=== PATIENT | female | born 1985 | race American Indian/Alaskan Native ===

== ENCOUNTER 2017-04-08 04:15 | Emergency (ER) | payer MEDICAID ==
[2017-04-08] MEDS ORDERED: NACL 0.9% 250ML 250 ML IV ONE (05:12)
[2017-04-08] MEDS ORDERED: NACL 0.9% 250ML 250 ML ONE (05:16)
[2017-04-08 05:23] LABS: Basophils % (Auto) 1.5 % (0.0-1.8); Eosinophils % (Auto) 0.6 % (0.0-4.3); Hematocrit 32.8 % (30.3-42.9); Hemoglobin 10.7 gm/dl (10.1-14.3); Mean Corpuscular HGB Conc 33 % (30-34); Mean Corpuscular Hemoglobin 28 pg (28-32); Mean Corpuscular Volume 84 fl (79-97); Platelet Count 438 K/mm3 (140-440); Red Blood Count 3.89 M/mm3 (3.65-5.03); White Blood Count 5.6 K/mm3 (4.5-11.0)
[2017-04-08 06:04] LABS: Anion Gap 32 mmol/L; BUN/Creatinine Ratio 23; Blood Urea Nitrogen 25 mg/dL (7-17); Calcium 9.5 mg/dL (8.4-10.2); Carbon Dioxide 21 mmol/L (22-30); Chloride 81.8 mmol/L (98-107); Glucose 97 mg/dL (65-100); Sodium 132 mmol/L (137-145)
[2017-04-08] MEDS ORDERED: MORPHINE IV ONE (06:12)
--- NOTE | 2017-04-08 06:16 | Emergency Department Report ---
ED Chest Pain HPI - General Chief Complaint: Chest Pain Stated Complaint: CHEST PAIN Time Seen by Provider: 04/08/17 05:58 Source: patient, EMS Mode of arrival: Stretcher Limitations: No Limitations - History of Present Illness Initial Comments: 31-year-old female who presents emergency Department with complaint of chest pain and a defib firing twice. Patient recently diagnosed with cardiomyopathy and was started on a minute milrinone drip. Her senior stack engineer is at [place]. She denies any other symptoms including chest pain nausea vomiting shortness of breath. She appears anxious but is otherwise well. MD Complaint: chest pain -: Sudden Pain Location: left chest Quality: tightness Consistency: constant Improves With: nothing Worsens With: nothing re: denies: nausea, vomting Treatments Prior to Arrival: none - Related Data Home Medications Medication Instructions Recorded Confirmed Last Taken Aspirin [Aspirin BABY CHEW TAB] 81 mg PO DAILY 04/08/17 04/08/17 1 Day Ago 81 Digoxin [Lanoxin] DAILY 04/08/17 Unknown Enoxaparin [Lovenox] 90 mg SUB-Q DAILY 04/08/17 04/08/17 1 Day Ago 90 ISOSORBIDE MONOnitrate [Monoket] 25 mg PO DAILY 04/08/17 04/08/17 1 Day Ago 25 Spironolactone [Aldactone] DAILY 04/08/17 Unknown Torsemide [Demadex] BID 04/08/17 Unknown Warfarin [Coumadin] 5 mg PO DAILY 04/08/17 04/08/17 1 Day Ago 5mg hydrALAZINE [Apresoline TAB] 100 mg PO TID 04/08/17 04/08/17 Unknown Allergies Allergy/AdvReac Type Severity Reaction Status Date / Time hydrochlorothiazide Allergy Intermediate Unknown Verified 04/08/17 04:33 nifedipine Allergy Mild Headache Verified 04/08/17 04:33 methyldopa AdvReac Mild Unknown Verified 04/08/17 04:33 Heart Score - HEART Score History: Moderately suspicious EKG: Non-specific Age: < 45 Risk factors: No known risk factors Troponin: < normal limit HEART Score: 2 ED Review of Systems ROS: Stated complaint: CHEST PAIN Other details as noted in HPI Comment: All other systems reviewed and negative Constitutional: denies: chills, fever Eyes: denies: eye pain, eye discharge, vision change ENT: denies: ear pain, throat pain Respiratory: denies: cough, shortness of breath, wheezing Cardiovascular: denies: chest pain, palpitations Endocrine: no symptoms reported Gastrointestinal: denies: abdominal pain, nausea, diarrhea Genitourinary: denies: urgency, dysuria, discharge Musculoskeletal: denies: back pain, joint swelling, arthralgia Skin: denies: rash, lesions Neurological: denies: headache, weakness, paresthesias Psychiatric: denies: anxiety, depression Hematological/Lymphatic: denies: easy bleeding, easy bruising ED Past Medical Hx - Past Medical History Previous Medical History?: Yes Hx Hypertension: Yes (PIH) Hx Congestive Heart Failure: Yes Hx Diabetes: No Hx Asthma: No Hx COPD: No Hx HIV: No - Surgical History Past Surgical History?: Yes Hx Internal Defibrillator: Yes (January 2017) - Family History Family history: no significant - Social History Smoking Status: Former Smoker Substance Use Type: None - Medications Home Medications: Home Medications Medication Instructions Recorded Confirmed Last Taken Type Aspirin [Aspirin BABY CHEW TAB] 81 mg PO DAILY 04/08/17 04/08/17 1 Day Ago History 81 Digoxin [Lanoxin] DAILY 04/08/17 Unknown History Enoxaparin [Lovenox] 90 mg SUB-Q DAILY 04/08/17 04/08/17 1 Day Ago History 90 ISOSORBIDE MONOnitrate [Monoket] 25 mg PO DAILY 04/08/17 04/08/17 1 Day Ago History 25 Spironolactone [Aldactone] DAILY 04/08/17 Unknown History Torsemide [Demadex] BID 04/08/17 Unknown History Warfarin [Coumadin] 5 mg PO DAILY 04/08/17 04/08/17 1 Day Ago History 5mg hydrALAZINE [Apresoline TAB] 100 mg PO TID 04/08/17 04/08/17 Unknown History ED Physical Exam - General Limitations: No Limitations General appearance: alert, in no apparent distress - Head Head exam: Present: atraumatic, normocephalic - Eye Eye exam: Present: normal appearance. Absent: scleral icterus, conjunctival injection - ENT ENT exam: Present: mucous membranes moist - Neck Neck exam: Present: normal inspection - Respiratory Respiratory exam: Present: normal lung sounds bilaterally. Absent: respiratory distress, wheezes, rales - Cardiovascular Cardiovascular Exam: Present: normal rhythm, tachycardia, normal heart sounds. Absent: systolic murmur, diastolic murmur, rubs, gallop - GI/Abdominal GI/Abdominal exam: Present: soft, normal bowel sounds. Absent: distended, tenderness, guarding - Extremities Exam Extremities exam: Present: normal inspection - Back Exam Back exam: Present: normal inspection - Neurological Exam Neurological exam: Present: alert, oriented X3 - Psychiatric Psychiatric exam: Present: normal affect, normal mood - Skin Skin exam: Present: warm, dry, intact, normal color. Absent: rash ED Course Vital Signs 04/08/17 04/08/17 04/08/17 04:20 04:30 04:45 Temperature 97.8 F Pulse Rate 110 H 109 H 107 H Respiratory 18 24 16 Rate Blood Pressure 102/64 92/62 Blood Pressure 91/61 [Left] O2 Sat by Pulse 100 100 99 Oximetry 04/08/17 04/08/17 04/08/17 04:55 05:00 05:05 Temperature Pulse Rate 54 L 109 H 130 H Respiratory 20 Rate Blood Pressure 91/61 Blood Pressure 92/62 [Left] O2 Sat by Pulse 99 Oximetry 04/08/17 04/08/17 04/08/17 05:15 05:30 06:00 Temperature Pulse Rate 54 L 129 H 123 H Respiratory 18 20 13 Rate Blood Pressure 106/64 123/82 Blood Pressure 106/64 [Left] O2 Sat by Pulse 100 100 100 Oximetry 04/08/17 04/08/17 04/08/17 06:30 09:25 13:18 Temperature 98.8 F 98.7 F Pulse Rate 121 H 104 H 107 H Respiratory 17 18 16 Rate Blood Pressure 123/82 Blood Pressure 94/54 101/65 [Left] O2 Sat by Pulse 99 100 99 Oximetry 04/08/17 14:30 Temperature Pulse Rate 112 H Respiratory 18 Rate Blood Pressure Blood Pressure 100/65 [Left] O2 Sat by Pulse 99 Oximetry ED Medical Decision Making - Lab Data Result diagrams: 04/08/17 04:54 04/08/17 11:09 Laboratory Results - last 24 hr 04/08/17 04/08/17 04/08/17 04:54 04:54 04:54 WBC 5.6 RBC 3.89 Hgb 10.7 Hct 32.8 MCV 84 MCH 28 MCHC 33 RDW 20.0 H Plt Count 438 Lymph % (Auto) 26.3 [place] % (Auto) 7.4 H Eos % (Auto) 0.6 Baso % (Auto) 1.5 Lymph # 1.5 [place] # 0.4 Eos # 0.0 Baso # 0.1 Seg Neutrophils % 64.2 Seg Neutrophils # 3.6 Sodium 132 L Chloride 81.8 L Carbon Dioxide 21 L Anion Gap 32 BUN 25 H Creatinine 1.1 Estimated GFR > 60 BUN/Creatinine Ratio 23 Glucose 97 Calcium 9.5 Troponin T 0.039 H HCG, Qual Negative - EKG Data -: EKG Interpreted by Me - EKG Data 04/08/17 06:18 Sinus rate of 117 left axis deviation biatrial enlargement appears to be in bigeminy no obvious ST or T-wave changes. Poor R-wave progression. - Medical Decision Making 31-year-old female with a history of cardiomyopathy here with complaint of August 11 twice. She complains of her heart rate going up today. She is on amiodarone drip. She is followed by senior stack engineer at [facility]. She currently appears well. She is tachycardic in the room. Plan to check labs, chest x-ray, and anticipate transfer to [facility]. I contacted [employer] to interrogate the pacemaker. They were able to remotely interrogate the pacer and sent a report. It appears the patient had 2 episodes of ventricular tachycardia and was defibrillated. Patient's potassium was 2.7. Plan to replace in the emergency department. Patient given 40 meq orally and 20 mEq IV. I discussed the case with the transfer center at [facility] and they have accepted the patient in transfer. The patient will be transferred to Dr. Cueva. Critical Care Time: Yes (90) Critical care attestation.: If time is entered above; I have spent that time in minutes in the direct care of this critically ill patient, excluding procedure time. Critical Care Time: 90 ED Disposition Clinical Impression: Ventricular tachycardia, Defibrillator discharge, Hypokalemia Disposition: [id number] ANOTHER TYPE HLTHCARE Is pt being admited?: No Condition: Stable Referrals: PRIMARY CARE, [Primary Care Provider] - 3-5 Days
[2017-04-08 06:24] LABS: Potassium 2.7 mmol/L (3.6-5.0)
[2017-04-08] MEDS ORDERED: DILAUDID ONE (06:24)
[2017-04-08] MEDS ORDERED: DILAUDID IV ONE ×2 (06:25→11:01)
[2017-04-08] MEDS ORDERED: K-DUR PO ONE ×2 (06:26→06:29)
[2017-04-08 07:00] LABS: Cholesterol 186 mg/dL (50-199); HDL Cholesterol 46 mg/dL (40-59); LDL Cholesterol,Direct 105 mg/dL (50-130); Triglycerides 176 mg/dL (2-149)
[2017-04-08] MEDS: KCL 10MEQ/100ML 10 MEQ/100 ML BAG IV SCH ×2 (07:03→09:24)
[2017-04-08 07:14] LABS: Magnesium 2.3 mg/dL (1.7-2.3)
--- NOTE | 2017-04-08 07:51 | XRay Report ---
Portable chest: Chest pain. The cardiac contour is enlarged and there is an ICD present. There is no vascular congestion and the lungs are clear. Impression: Cardiomegaly.
[2017-04-08] MEDS ORDERED: NACL 0.9% IV SCH (12:30)
[2017-04-08] MEDS ORDERED: KCL 20MEQ/100ML 20 MEQ/100 ML BAG IV ONE (12:30)
[2017-04-08] MEDS ORDERED: KCL IV SCH (12:30)
[2017-04-08 14:31] VITALS: BP 100/65
== END 2017-04-08 14:50 | disposition other institution (70) ==
LOC: ED 04:15
DX: I47.2 Ventricular tachycardia (principal); E87.6 Hypokalemia
CPT/HCPCS: 36415; 71010; 80048; 80061; 80162; 83735; 83880; 84132; 84484; 84703; 85025; 93005; 93010; 96361; 96365; 96366; 96367; 96375; 96376; 99291; 99292; J1170; J2270; J3480; J7050